=== PATIENT | female | born 1965 | race Caucasian/White ===

== ENCOUNTER 2021-09-12 23:27 | Observation (INO) | payer OTHER, SELFPAY ==
--- NOTE | ~2021-09-12 | CT_ITS ---
EXAMINATION: CT abdomen pelvis w con DATE: 09/13/2021 05:57 INDICATION: Decubitus ulcers. Assess for free air. TECHNIQUE: Computed tomography (CT) of the abdomen and pelvis was performed with 100 mL Omnipaque-350 intravenous contrast. Automated exposure control and iterative reconstruction technique were employe d. The dose-length product was 1434.20 mGy-cm. COMPARISON: None FINDINGS: Small left pleural effusion. Mild dependent atelectasis in the bilateral lower lobes. Heart size is n ormal. No pericardial effusion. Calcified paraesophageal lymph nodes and small splenic calcific locat ion consistent with old granulomatous disease. Cholecystectomy clips the gallbladder fossa. Liver, pa ncreas, bilateral adrenal glands and right kidney are normal. 8 x 7 x 19 mm obstructing stone in the proximal left ureter with severe left hydroureteronephrosis. There is marked thinning of the left saranya al parenchyma. Multiple additional 4 mm or smaller stones are seen in the dependent aspect of the barry yces in the lower pole of the left kidney. There appears to be extravasation of a small amount of flu id into the posterior perirenal fat along the upper pole of the kidney suggesting forniceal rupture w ith small urinoma. Fluid throughout the colon consistent with diarrhea. No bowel obstruction. Normal appendix. Small focus of gas in the otherwise normal partially decompressed bladder. 4 cm enhancing f ibroid at the uterine fundus. Bilateral adnexa are unremarkable. Trace amount of likely physiologic f ree fluid in the cul-de-sac. No abscess or free intraperitoneal gas. No pathologically enlarged abdom inal or pelvic lymphadenopathy. Small decubitus ulcer with few small foci of gas in the soft tissues overlying the coccyx. No definitive cortical erosion to suggest osteomyelitis. Multilevel imaging os teophytes/syndesmophytes throughout the visualized lower thoracic spine. Severe lumbar spondylosis. IMPRESSION: 1. Left nephrolithiasis with obstructing 19 x 8 x 7 mm proximal left ureteral stone with severe left hydroureteronephrosis which may be chronic given the significant renal cortical thinning. 2. Suggestion of forniceal rupture with small urinoma posterior to the upper pole of the left kidney. 3. Small left pleural effusion. 4. Decubitus ulcer overlying the posterior margin of the distal coccyx without abscess or definitive osteomyelitis. 5. Small amount of fluid in the bladder. Correlate for recent instrumentation or Schneider catheterizatio n. 6. 4 cm uterine fibroid. Reviewed, dictated and finalized at location A. ER FITTING IMPRESSION: 1. Left nephrolithiasis with obstructing 19 x 8 x 7 mm proximal left ureteral s tone with severe left hydroureteronephrosis which may be chronic given the sign ificant renal cortical thinning. 2. Suggestion of forniceal rupture with small urinoma posterior to the upper po le of the left kidney. 3. Small left pleural effusion. 4. Decubitus ulcer overlying the posterior margin of the distal coccyx without abscess or definitive osteomyelitis. 5. Small amount of fluid in the bladder. Correlate for recent instrumentation o r Schneider catheterization. 6. 4 cm uterine fibroid.
--- NOTE | 2021-09-12 23:30 | PC.NURSE ---
Patient refusing to get out of EMS stretcher. Michelle lift used to move patient from stretcher to wheelchair. Patient able to sit safely in wheelchair.
[2021-09-12 23:35] VITALS: BP 97/66; PULSE 79; RESP 16; TEMP 35.9; O2SAT 99
[2021-09-13] VITALS (18 sets, daily range): BP systolic 109–131; BP diastolic 46–74; PULSE 72–101; RESP 13–20; TEMP 36.1–36.2; O2SAT 92–99; BMI 41.4
--- NOTE | 2021-09-13 04:15 | PC.NURSE ---
Pt sitting in W/C in waiting room. awake/ alert no s/s of distress noted.
--- NOTE | 2021-09-13 04:33 | PC.NURSE ---
Patient transferred from w/c to stretcher via rosi lift. Patient refused to get up out of w/c, stated the pain is too much for her to stand. Patient states ever since her fall in july of last year she has not been able to take care of herself as she used too. Patient arrives a/ox3.
--- NOTE | 2021-09-13 04:39 | ECG_ITS ---
Measurements Intervals Lena Rate: 84 P: 7 ME: 143 QRS: -20 QRSD: 105 T: 58 QT: 400 QTc: 473 Interpretive Statements SINUS RHYTHM FREQUENT ATRIAL PREMATURE COMPLEXES EARLY PRECORDIAL R/S TRANSITION POSSIBLE LEFT VENTRICULAR HYPERTROPHY MINIMAL Q WAVES- HIGH LATERAL LEADS BASELINE ARTIFACT- I, II, III, AVR, AVL, AVF, V1-V6 ABNORMAL ECG Electronically Signed On 09-13-2021 7:08:42 EXCELLENCE SPECIALIST by Navdeep Magallon D.O.
--- NOTE | 2021-09-13 05:15 | ED.WEAKNESS ---
HPI - Weakness General Chief complaint: Weakness Stated complaint: DECREASED PO INTAKE Time Seen by Provider: 09/13/21 04:28 Source: patient History of Present Illness HPI Narrative: Patient presents with weakness. Reports she has had diarrhea over the past few days getting progressively worse so that she feels too weak to take care of herself tonight so she came to the ER for evaluation. Reports a history of MS and is at her baseline symptoms she denies any fevers, cough, congestion she denies any abdominal pain. Reports she has an ulcer on her bottom side that is more painful. Denies any urinary symptoms. Reports her primary concern is she is feeling dehydrated due to her diarrhea and slight decrease in p.o. intake Related Data Home Medications Medication Instructions Recorded Confirmed acyclovir 400 mg tablet 400 mg PO BID 01/12/21 albuterol sulfate 90 mcg/actuation 1 puff INHALATION Q4H PRN 01/12/21 aerosol inhaler albuterol sulfate 90 mcg/actuation 2 puff INHALATION Q4H PRN g 01/12/21 aerosol inhaler aspirin 81 mg chewable tablet 81 mg PO DAILY 01/12/21 hydrocodone 10 mg-acetaminophen 1 tablet PO Q6H PRN 01/12/21 325 mg tablet meloxicam 15 mg tablet 15 mg PO DAILY 01/12/21 polyethylene glycol 3350 17 gram 17 g PO DAILY 01/12/21 oral powder packet Allergies Allergy/AdvReac Type Severity Reaction Status Date / Time No Known Allergies Allergy Verified 09/13/21 06:00 Review of Systems Review of Systems: CONSTITUTIONAL: Denies fever, chills, or sweats. EYES: Denies visual changes, redness, or discharge. ENT: Denies rhinorrhea, congestion, sore throat, or otalgia. CARDIOVASCULAR: Denies chest pain, palpitations, or edema. RESPIRATORY: Denies cough or dyspnea. GASTROINTESTINAL: Denies abdominal pain, nausea, vomiting. GENITOURINARY: Denies dysuria or hematuria. SKIN: Denies rash or itching. MUSCULOSKELETAL: Denies back pain, joint pain, or myalgia. NEUROLOGIC: Denies headache, numbness, dizziness, or focal weakness. PSYCHIATRIC: Denies anxiety or depression. All systems reviewed & are unremarkable except as noted in HPI and below PMFSH Social History Social History Smoking packs per day: 1.5 Smoking cigarettes per day: 30.0 Years smoked: 30 Smoking pack-years: 45.00 Smoking status: Current every day smoker Tobacco type: cigarettes Alcohol intake: never Substance use: never Substance use type: does not use Exam Narrative: GENERAL: Well-appearing, well-nourished, and in no acute distress. HEAD: Normocephalic, atraumatic. EYES: PERRLA and EOMI. ENT: Nares clear, no rhinorrhea or epistaxis. Mucous membranes moist. NECK: Supple. No masses. No JVD CHEST: Clear to auscultation. No respiratory distress. No wheezes rales or rhonchi HEART: Regular rate and rhythm. No murmur heard. Normal peripheral pulses. ABDOMEN: Soft, nontender, nondistended, normal active bowel sounds. EXTREMITIES: Normal range of motion. Symmetric pitting edema noted bilateral lower extremities Back: Cubitus ulcer noted on the sacral area with surrounding erythema mild tenderness palpation no purulent drainage no focal fluctuance. SKIN: Warm, dry, no rash. NEURO: No focal deficits. Alert and oriented x3. PSYCH: Normal mood and affect. Course Reevaluation(s) Reevaluation #1: Patient is resting comfortably results reviewed with patient. Patient is comfortable with the inpatient plan. Date: 09/13/21 Time: 08:04 Vital Signs Vital signs: Vital Signs Temperature 35.9 C L 09/12/21 23:35 Pulse Rate 79 09/12/21 23:35 Respiratory Rate 16 09/12/21 23:35 Blood Pressure 97/66 L 09/12/21 23:35 Pulse Oximetry 99 09/12/21 23:35 Temperature 36.1 C L 09/13/21 04:15 Pulse Rate 84 09/13/21 06:31 Respiratory Rate 19 09/13/21 06:31 Blood Pressure 123/69 09/13/21 06:31 Pulse Oximetry 97 09/13/21 06:31 MDM - Weakness MDM Narrative
[2021-09-13] MEDS: SODIUM CHLORIDE 0.9% IV 1,000 ML 999 ML IV CONT (05:16)
[2021-09-13 05:23] LABS: Basophils Percent Auto 0.1 % (0.2-1.2); Hematocrit 38.2 % (37.0-47.0); Immature Granulocyte Absolute 0.11 K/mm3 (0.00-0.031); Immature Granulocyte Percent A 0.8 % (0-0.5); Lymphocytes Absolute Auto 0.72 K/mm3 (0.9-3.2); Lymphocytes Percent Auto 5.2 % (18.3-44.2); Mean Corpuscular Hemoglobin 29.6 pg (26-34); Mean Platelet Volume 9.5 fl (7.4-10.4); Monocytes Absolute Auto 0.5 K/mm3 (0.1-0.6); Monocytes Percent Auto 3.7 % (2.6-8.5); Neutrophils Absolute Auto 12.5 K/mm3 (1.3-6.7); Neutrophils Percent Auto 90.2 % (45.5-73.1); Platelet Count Result 157 k/mm3 (150-375); Red Blood Count 4.39 M/mm3 (4.2-5.4); Red Cell Distribution Width 14.9 % (11.5-14.5); White Blood Count 13.8 K/mm3 (4.5-10.0)
[2021-09-13 05:30] LABS: Add Urine Microscopic? YES; Appearance Urine Cloudy (Clear); Bilirubin Urine Negative (Negative); Blood Urine 2+ (Negative); Color Urine Amber (Yellow); Glucose Urine UA Negative (Negative); Ketones Urine Trace mg/dL (Negative); Leukocyte Esterase Ur 2+ LEU/UL (Negative); Mucus Urine Heavy /lpf; Nitrate Urine Negative (Negative); Protein Urine 2+ mg/dL (Negative); Specific Grav Ur 1.015 (1.001-1.035); WBC Clumps Urine Present /HPF; WBC Urine >75 /hpf
[2021-09-13 05:32] LABS: Lactic Acid Reflex 2.4 mmol/L (0.7-2.1)
[2021-09-13 05:34] LABS: Alanine Aminotransferase 27 U/L (4-35); Albumin Level 3.1 g/dL (3.5-5.1); Alkaline Phosphatase 204 U/L (38-126); Anion Gap 7 mmol/L (8-16); Aspartate Amino Transferase 49 U/L (14-36); Bilirubin,Total 0.8 mg/dL (0.2-1.3); Blood Urea Nitrogen 11 mg/dL (7-17); Calcium 8.2 mg/dL (8.4-10.2); Carbon Dioxide 25 mmol/L (22-30); Chloride 96 mmol/L (98-107); Estimated CRCL calculation 167 ml/min; Estimated Glomerular Filt Rate > 60; Glucose 157 mg/dL (65-110); Lipase 53 U/L (23-300); Potassium 3.3 mmol/L (3.4-5.0); Sodium 128 mmol/L (137-145)
[2021-09-13 08:15] LABS: Reflex Lactic Acid Yes or No Add Lactic
[2021-09-13 09:07] LABS: Lactic Acid 1.7 mmol/L (0.7-2.1)
[2021-09-13] MEDS: FUROSEMIDE INJ 40 MG/4 ML VIAL IV PUSH (10:23)
[2021-09-13] MEDS: SODIUM CHLORIDE 0.9% IV 1,000 ML 125 ML IV CONT (10:24)
--- NOTE | 2021-09-13 11:28 | WPDURCON ---
Assessment and Plan Assessment and plan (1) UTI (urinary tract infection): Qualifiers: Hematuria presence: without hematuria Urinary tract infection type: site unspecified Qualified Code(s): N39.0 - Urinary tract infection, site not specified Code(s): N39.0 - Urinary tract infection, site not specified Status: Acute Assessment and Plan: Send culture, treat with culture specific antibiotics (2) Hydronephrosis: Qualifiers: Hydronephrosis type: unspecified Qualified Code(s): N13.30 - Unspecified hydronephrosis Code(s): N13.30 - Unspecified hydronephrosis Status: Acute Assessment and Plan: She had a severely obstructed left kidney without evidence for pyelo secondary to a 2 cm ureteral stone which has probably been there for years or decades. - this was essentially an incidental finding - without evidence for pyelo on CT or high fevers/flank pain, would avoid stent at this time--- if her kidney isn't infected now, stenting a poorly draining kidney will likely infect it which will be nearly impossible to clear which will hasten or require nephrectomy - if she clinically deteriorates, then a left ureteral stent could be attempted (given longstanding stone, may not be able to navigate past) [facility] Consult Note HPI Date Seen: 09/13/21 Primary Care Provider: Renetta Germain, [employer] NETWORK ENGINEER- Consult Narrative Narrative: Alanna Membreno is a 56 year old female with MS, recently established with neuro. Brought to ED for decreased PO intake, dysuria, weakness. CT was performed as she was found to have a decub ulcer and ED was making sure no abscess. She says she saw a urologist when she was a teenager, doesn't know why, nothing recent. She had dysuria but no flank or abdominal pain, no fevers/chills/etc. Vitals normal WBC 13.8 [address] showed air in bladder (she was cath'd according to ED doc to get urine sample given her poor ambulation), empty bladder, hydronephrotic left kidney with almost no parenchyma, 2 cm mid ureteral stone, no stranding, air, evidence of pyelo Review of Systems Review of Systems: All systems reviewed & are unremarkable except as noted in HPI and below PMFSH Social History Social History Smoking packs per day: 1.5 Smoking cigarettes per day: 30.0 Years smoked: 30 Smoking pack-years: 45.00 Smoking status: Current every day smoker Tobacco type: cigarettes Alcohol intake: never Substance use: never Substance use type: does not use Meds Home Medications and Allergies Home Medications Medication Instructions Recorded Confirmed Type acyclovir 400 mg tablet 400 mg PO BID 01/12/21 History albuterol sulfate 90 mcg/actuation 1 puff INHALATION Q4H PRN 01/12/21 History aerosol inhaler albuterol sulfate 90 mcg/actuation 2 puff INHALATION Q4H PRN g 01/12/21 History aerosol inhaler aspirin 81 mg chewable tablet 81 mg PO DAILY 01/12/21 History hydrocodone 10 mg-acetaminophen 1 tablet PO Q6H PRN 01/12/21 History 325 mg tablet meloxicam 15 mg tablet 15 mg PO DAILY 01/12/21 History polyethylene glycol 3350 17 gram 17 g PO DAILY 01/12/21 History oral powder packet baclofen 10 mg tablet See Rx Instructions .ROUTE 08/06/21 Rx .COMPLEX #90 tablet gabapentin 600 mg tablet See Rx Instructions .ROUTE 08/06/21 Rx .COMPLEX #150 tablet modafinil 200 mg tablet 200 mg PO DAILY #30 tablet 09/07/21 Rx Allergies Allergy/AdvReac Type Severity Reaction Status Date / Time No Known Allergies Allergy Verified 09/13/21 06:00 Vital Signs Vital Signs - 24 hr 09/12/21 23:35 09/13/21 04:15 09/13/21 04:34 Temperature 35.9 C L 36.1 C L Pulse Rate 79 90 90 Respiratory Rate 16 18 15 Blood Pressure 97/66 L 114/68 Pulse Oximetry 99 98 99 09/13/21 04:46 09/13/21 05:10 09/13/21 05:16 Temperature Pulse
--- NOTE | 2021-09-13 11:41 | WPDNEURCNPN ---
Assessment and Plan Additional Plan 1. Multiple sclerosis for which patient is not receiving any anti MS medication 2. Renal stone 3. Generalized symptomatology plan is to let the general problem be taken care, involving the physical therapy before any treatment is considered Consult date: 09/13/21 HPI: Alanna Membreno is a 56 year old female 56 years old lady admitted to [facility] through the emergency room for the complaints of diarrhea of several days duration in addition to the ongoing history of multiple sclerosis and presenting complaints of fever cough congestion an ulcer on the bottom but not taking any anti demyelinating disease medications. Initial evaluation in the emergency room documented his small bilateral pleural effusion, severe hydronephrosis of the left kidney with severe thinning of the car tax, along with large long-standing obstructing calculus in the mid ureter measuring 2.1x1cm, decompensated urinary bladder with mild wall thickening, fibroid uterus with fundal fibroid measuring 3.6cm, diverticulosis without acute diverticulitis and without any free intraperitoneal air, liquid stool in the left colon consistent with mild diarrhea disease, on home medications including acyclovir 400 mg twice a day, neurology consult has already been obtained. Review of Systems Review of Systems: All systems reviewed & are unremarkable except as noted in HPI and below PMFSH Social History Social History Smoking packs per day: 1.5 Smoking cigarettes per day: 30.0 Years smoked: 30 Smoking pack-years: 45.00 Smoking status: Current every day smoker Tobacco type: cigarettes Alcohol intake: never Substance use: never Substance use type: does not use Meds Home Medications and Allergies Home Medications Medication Instructions Recorded Confirmed Type acyclovir 400 mg tablet 400 mg PO BID 01/12/21 History albuterol sulfate 90 mcg/actuation 1 puff INHALATION Q4H PRN 01/12/21 History aerosol inhaler albuterol sulfate 90 mcg/actuation 2 puff INHALATION Q4H PRN g 01/12/21 History aerosol inhaler aspirin 81 mg chewable tablet 81 mg PO DAILY 01/12/21 History hydrocodone 10 mg-acetaminophen 1 tablet PO Q6H PRN 01/12/21 History 325 mg tablet meloxicam 15 mg tablet 15 mg PO DAILY 01/12/21 History polyethylene glycol 3350 17 gram 17 g PO DAILY 01/12/21 History oral powder packet baclofen 10 mg tablet See Rx Instructions .ROUTE 10/28/21 Rx .COMPLEX #90 tablet gabapentin 600 mg tablet See Rx Instructions .ROUTE 08/06/21 Rx .COMPLEX #150 tablet modafinil 200 mg tablet 200 mg PO DAILY #30 tablet 09/07/21 Rx Allergies Allergy/AdvReac Type Severity Reaction Status Date / Time No Known Allergies Allergy Verified 09/13/21 06:00 Vital Signs Vital Signs - 24 hr 09/12/21 23:35 09/13/21 04:15 09/13/21 04:34 Temperature 35.9 C L 36.1 C L Pulse Rate 79 90 90 Respiratory Rate 16 18 15 Blood Pressure 97/66 L 114/68 Pulse Oximetry 99 98 99 09/13/21 04:46 09/13/21 05:10 09/13/21 05:16 Temperature Pulse Rate 79 79 Respiratory Rate 17 16 Blood Pressure Pulse Oximetry 99 98 09/13/21 05:30 09/13/21 05:32 09/13/21 05:56 Temperature Pulse Rate 101 H Respiratory Rate 15 13 Blood Pressure Pulse Oximetry 97 97 09/13/21 05:58 09/13/21 06:01 09/13/21 06:20 Temperature Pulse Rate 85 86 84 Respiratory Rate 15 16 20 Blood Pressure 131/74 Pulse Oximetry 98 97 98 09/13/21 06:30 09/13/21 06:31 09/13/21 08:47 Temperature Pulse Rate 82 84 77 Respiratory Rate 18 19 18 Blood Pressure 123/69 126/66 Pulse Oximetry 97 97 95 09/13/21 10:49 Temperature Pulse Rate 80 Respiratory Rate 17 Blood Pressure 113/61 Pulse Oximetry 97 Exam Const: General: cooperative, comfortable, no acute distress, alert and awake Nutritional Appearance: obese Orientation/consciousness: oriented to per
--- NOTE | 2021-09-13 13:06 | PC.NURSE ---
This patient, Alanna Membreno, was admitted to [facility] Surg Room 326-01 at 1200. Patient/family oriented to hospital policies and general routines including ID bracelet, bed and alarms, visiting hours, pain management, procedures, bathroom and other care routines, personal items, smoking policy, room service/diet, and visiting hours. Information on how to activate the Rapid Response Team has been discussed. Patient/Family are encouraged to report perceived risks to care and to ask questions if they do not understand what they are told or what they should do.
--- NOTE | 2021-09-13 14:20 | PM.IMHP ---
H&P: HPI History of Present Illness Date/Time: 09/13/21 14:20 this is a 54-year-old female patient who resides with her mother. She has a history of MS. The patient stated that she has had a poor appetite for the last week. She also stated that she has not been taking her medication for at least a month. She states that she is pretty much wheelchair-bound. The patient stated that she does have home health at least 3 times a week. She has been having diarrhea in the last time she had diarrhea was this morning. The patient stated that she has been incontinent of liquid stool as well as urine. She stated that her buttocks has been broke down and has been getting worse. She stated that the nurses have tried to put a foam dressing on her buttocks but it got ripped off and me the maceration worse. The patient stated that she has urinary frequency and urgency. She is incontinent of urine but feels as though her bladder is still full. White count 13.8. Sodium 128 potassium 3.3. Patient was positive for UTI. Abdominal pelvis CT was read as 1. Left nephrolithiasis with obstructing 19 x 8 x 7 mm proximal left ureteral stone with severe left hydroureteronephrosis which may be chronic given the significant renal cortical thinning. 2. Suggestion of forniceal rupture with small urinoma posterior to the upper pole of the left kidney. 3. Small left pleural effusion. 4. Decubitus ulcer overlying the posterior margin of the distal coccyx without abscess or definitive osteomyelitis. 5. Small amount of fluid in the bladder. Correlate for recent instrumentation or Schneider catheterization. 6. 4 cm uterine fibroid. Patient was started on IV fluids ceftriaxone Lasix and Zosyn in the emergency room. Urology and Neurology have been consulted. The patient is being admitted to observation status on 09/13/2021. Chief Complaint: Diarrhea and weakness Review of Systems Review of Systems: All systems reviewed & are unremarkable except as noted in HPI and below Constitutional: Constitutional: Reports as per HPI and Reports no additional constitutional complaints Eyes: Eyes: Reports as per HPI and Reports no additional eye complaints ENT: Reports system reviewed and no additional complaints, except as documented and Reports Normal hearing present Cardiovascular: Cardiovascular: Reports no additional cardiovascular complaints Respiratory: Respiratory: Reports no additional respiratory complaints and Reports no additional respiratory complaints Gastrointestinal: Gastrointestinal: Reports as per HPI and Reports no additional gastrointestinal complaints Musculoskeletal: Musculoskeletal: Reports no additional musculoskeletal complaints Integumentary/Breasts: Skin/Breast: Reports system reviewed and no additional complaints, except as docu and Reports as per HPI Neurologic: Reports system reviewed and no additional complaints, except as documented, Reports as per HPI and Reports Normal hearing present Psychiatric: Psychiatric: Reports no additional psychiatric complaints and Reports as per HPI Endocrine: Endocrine: Reports no additional endocrine complaints Hematologic/Lymphatic: Hematologic/Lymphatic: Reports no additional hematologic/lymphatic complaints Allergic/Immunologic: Allergic/Immunologic: Reports no additional allergic/immunologic complaints PMFSH Past Medical History Medical History (Updated 09/13/21 @ 14:46 by Gwendolyn Steven NP) Asthma History of nephrolithiasis Multiple sclerosis Shingles Surgical History Surgical History (Updated 09/13/21 @ 14:46 by Gwendolyn Steven NP) History of surgery on upper extremity Hx of cholecystectomy Family History Family History (Updated 09/13/21 @ 14:47 by Gwendolyn Steven NP) Father Diabetes mellitus Social History Social History (Updated 09/13/21 @ 14:57 by Gwendolyn Steven NP) Social History: The patient tells me that she quit smoking 3 months ago. She lives with her mother and she is disabled.
[2021-09-13 15:19] LABS: Anion Gap 7 mmol/L (8-16); Blood Urea Nitrogen 8 mg/dL (7-17); Calcium 7.7 mg/dL (8.4-10.2); Carbon Dioxide 26 mmol/L (22-30); Chloride 97 mmol/L (98-107); Estimated CRCL calculation 137 ml/min; Estimated Glomerular Filt Rate > 60; Glucose 150 mg/dL (65-110); Potassium 2.9 mmol/L (3.4-5.0); Sodium 130 mmol/L (137-145)
[2021-09-13] MEDS: ACYCLOVIR 400 MG TABLET PO (16:57)
[2021-09-13] MEDS: POTASSIUM CHLORIDE 20 MEQ PACKET (FOR LIQUID) 40 MEQ PO (19:33)
[2021-09-13 23:39] LABS: Anion Gap 5 mmol/L (8-16); Blood Urea Nitrogen 9 mg/dL (7-17); Calcium 7.7 mg/dL (8.4-10.2); Carbon Dioxide 23 mmol/L (22-30); Chloride 98 mmol/L (98-107); Estimated CRCL calculation 167 ml/min; Estimated Glomerular Filt Rate > 60; Glucose 136 mg/dL (65-110); Magnesium 2.1 mg/dL (1.6-2.3); Potassium 3.4 mmol/L (3.4-5.0); Sodium 126 mmol/L (137-145)
--- NOTE | 2021-09-14 01:01 | PC.NURSE ---
clarified home medications with patient, she was frustrated in general and said I haven't taken them in a long time and I don't feel up to taking them now Offered her the one ordered for tonight and she said she will not take it .. She overall has had very little motivation and her only concern tonight has been her room temperature.
[2021-09-14] MEDS: SODIUM CHLORIDE 0.9% IV 1,000 ML 125 ML IV CONT (05:53)
[2021-09-14 06:00] VITALS: BP 104/54; PULSE 67; RESP 18; TEMP 35.7; O2SAT 94
[2021-09-14 07:12] LABS: Basophils Percent Auto 0.2 % (0.2-1.2); Eosinophils Percent Auto 0.1 % (0-4.4); Hematocrit 33.3 % (37.0-47.0); Hemoglobin 11.4 g/dL (12.0-15.0); Immature Granulocyte Absolute 0.06 K/mm3 (0.00-0.031); Immature Granulocyte Percent A 0.7 % (0-0.5); Lymphocytes Percent Auto 9.4 % (18.3-44.2); Mean Corpuscular HGB Conc 34.2 g/dl (32-36); Mean Corpuscular Hemoglobin 29.7 pg (26-34); Mean Corpuscular Volume 86.7 fl (80-100); Mean Platelet Volume 9.4 fl (7.4-10.4); Monocytes Absolute Auto 0.5 K/mm3 (0.1-0.6); Monocytes Percent Auto 6.2 % (2.6-8.5); Neutrophils Absolute Auto 7.1 K/mm3 (1.3-6.7); Neutrophils Percent Auto 83.4 % (45.5-73.1); Platelet Count Result 140 k/mm3 (150-375); Red Blood Count 3.84 M/mm3 (4.2-5.4); Red Cell Distribution Width 14.9 % (11.5-14.5); White Blood Count 8.5 K/mm3 (4.5-10.0)
[2021-09-14 07:22] LABS: Alanine Aminotransferase 18 U/L (4-35); Albumin Level 2.5 g/dL (3.5-5.1); Alkaline Phosphatase 156 U/L (38-126); Anion Gap 6 mmol/L (8-16); Aspartate Amino Transferase 29 U/L (14-36); Bilirubin,Total 0.9 mg/dL (0.2-1.3); Blood Urea Nitrogen 6 mg/dL (7-17); Calcium 7.6 mg/dL (8.4-10.2); Carbon Dioxide 24 mmol/L (22-30); Chloride 102 mmol/L (98-107); Estimated CRCL calculation 167 ml/min; Estimated Glomerular Filt Rate > 60; Glucose 135 mg/dL (65-110); Lactic Acid Reflex 1.5 mmol/L (0.7-2.1); Lipase 66 U/L (23-300); Sodium 132 mmol/L (137-145)
[2021-09-14 11:40] VITALS: BMI 41.4
[2021-09-14 12:03] LABS: Total Triiodothyronine (T3) 0.74 NG/ML (0.97-1.69)
--- NOTE | 2021-09-14 12:49 | PM.IMPN ---
Progress Note: A&P Assessment and Plan (1) UTI (urinary tract infection): Qualifiers: Hematuria presence: without hematuria Urinary tract infection type: site unspecified Qualified Code(s): N39.0 - Urinary tract infection, site not specified Code(s): N39.0 - Urinary tract infection, site not specified Status: Acute Assessment and Plan: -Urine and blood cultures are pending. -Continue with Zosyn. (2) Multiple sclerosis: Code(s): G35 - Multiple sclerosis Status: Chronic Assessment and Plan: -Neurology has been consulted. -The patient stated she has not been taking any of her medication for at least a month (3) Diarrhea: Code(s): R19.7 - Diarrhea, unspecified Status: Acute Assessment and Plan: -Will get stool specimens. -The patient stated that she has been having diarrhea for least a week w/ liquid stool incontinence. -Monitor her electrolytes closely. (4) Shingles: Code(s): B02.9 - Zoster without complications Status: Chronic Assessment and Plan: -Continue with acyclovir. (5) Asthma: Code(s): J45.909 - Unspecified asthma, uncomplicated Status: Chronic Assessment and Plan: -Continue with her home inhalers (6) Weakness: Code(s): R53.1 - Weakness Status: Acute Assessment and Plan: -Patient has MS and she has home health coming out 3 days a week but stated she may require more care than this. -She does live with her mother. (7) Hydronephrosis: Qualifiers: Hydronephrosis type: unspecified Qualified Code(s): N13.30 - Unspecified hydronephrosis Code(s): N13.30 - Unspecified hydronephrosis Status: Acute Assessment and Plan: -Urology has been consulted and nuclear med Lasix renal scan has been ordered as well. -Please see urology notes. -She has had a severely obstructive left kidney without evidence of pyelo secondary to his 2 cm ureteral stone which has probably been there for years or decades. -Pt has refused renal scan until speaking with urology again (8) Leukocytosis (leucocytosis): Qualifiers: Leukocytosis type: unspecified Qualified Code(s): D72.829 - Elevated white blood cell count, unspecified Code(s): D72.829 - Elevated white blood cell count, unspecified Status: Acute Assessment and Plan: -The patient is being treated for urinary tract infection. -Blood and urine cultures as well as stool cultures are ordered and pending (9) Hyponatremia: Code(s): E87.1 - Hypo-osmolality and hyponatremia Status: Acute Assessment and Plan: -Decreased PO intake and volume loss secondary to diarrhea -Cautious IVF w/ NS (10) Hypokalemia: Code(s): E87.6 - Hypokalemia Status: Acute Assessment and Plan: -Likely due to increase PO intake and volume loss secondary to diarrhea -Refusing all PO meds, will change IVF to KCL/NS @100/hr -Continue to monitor and replace as necessary Additional Plan Currently refusing all meds that aren't IV. At least she is getting treated for UTI w/ zosyn and I changed her IVF to have KCL/NS for her hyponatremia and hypokalemia. Has home health 3x week, does not seem to be enough, may need to consider SNF?? Also refusing renal scan wants to see urologist again prior to getting it done. Subjective Date/time seen: 09/14/21 12:49 Interval history: 56 yo female w/ hx of MS admitted for UTI and hydronephrosis. Generalized weakness and debility. Today pt c/o back pain, fatigue, dysuria, diarrhea. Refusing meds with no specific reason why. Has baclofen and gabapentin ordered for her back pain but does not want to take it. Review of Systems Review of Systems: General: Denies fevers, + fatigue Eyes: Denies vision changes or eye pain ENT: Denies nasal congestion or sore throat Respiratory: Den
--- NOTE | 2021-09-14 13:05 | WPDUROPN2 ---
Progress Note: A&P Additional Plan Patient has a 2 cm ureteral stone. There is hydronephrosis proximal to the stone. There was essentially no renal parenchyma left. She is not currently having flank pain. She is not currently having dysuria. Urine culture is pending. Would follow up on her urine culture and treat with appropriate antibiotics if positive. No intervention needed on the ureteral stone as the kidney upstream has essentially 0 function. Would only intervene if she has upper tract infection Subjective Subjective Date/Time Seen: 09/14/21 13:05 Patient is the covers up over her face. She does respond to questions. But she does not reveal her face. She denies any dysuria. She denies any flank pain Exam Narrative: Appears to be resting comfortably Objective Data Vital Signs Vital Signs: Vital Signs - 24 hr 09/13/21 14:03 09/13/21 22:00 09/14/21 06:00 Temperature 96.9 F L 97.2 F L 96.3 F L Pulse Rate 72 84 67 Respiratory Rate 20 18 18 Blood Pressure 114/55 L 109/46 L 104/54 L Pulse Oximetry 92 94 94 Intake/Output Intake/Output: Intake & Output 09/11/21 09/12/21 09/13/21 09/14/21 23:59 23:59 23:59 23:59 Intake Total 2540 100 Balance 2540 100 Meds/Results Medications: Active Medications Generic Name Dose Route Start Last Admin Trade Name Freq PRN Reason Stop Dose Admin Acetaminophen 650 mg 09/13/21 15:57 Acetaminophen 325 Mg Tablet PO Q6H PRN Fever Hydrocodone Bitart/Acetaminophen 1 tab 09/13/21 15:57 Hydrocodone/Acetaminophen (*Crx) 10-325 Mg Tablet PO Q6H PRN Pain Acyclovir 400 mg 09/13/21 17:00 09/14/21 11:23 Acyclovir 400 Mg Tablet PO Not Given BID ANGELA Albuterol 1 - 2 puff 09/13/21 15:57 Albuterol Sulfate (*Sp) Aerosol 1 Puff INHALATION Q4H PRN Shortness Of Breath Aspirin 81 mg 09/14/21 09:00 09/14/21 11:24 Aspirin 81 Mg Chewable Tablet PO Not Given DAILY ANGELA Baclofen 10 mg 09/13/21 23:15 09/14/21 12:19 Baclofen 10 Mg Tablet PO Not Given TID ANGELA Gabapentin 600 mg 09/14/21 09:00 09/14/21 12:19 Gabapentin 300 Mg Capsule PO Not Given 5 TIMES DAILY [facility] Piperacillin/Tazobactam/Dextrose 3.375 gm in 50 mls @ 100 mls/hr 09/13/21 18:00 09/14/21 12:13 Zosyn 3.375 Gm/D5w 50ml Pm IVPB 100 mls/hr Q6H ANGELA Administration Potassium Chloride/Sodium Chloride 1,000 mls @ 100 mls/hr 09/14/21 13:00 Kcl 20 Meq/Ns IV CONT .Q10H [facility] Meloxicam 15 mg 09/14/21 09:00 09/14/21 11:24 Meloxicam 7.5 Mg Tablet PO Not Given DAILY [facility] Miconazole Nitrate 1 applic 09/14/21 09:00 09/14/21 12:13 Miconazole 2% Antifungal Ointment 56 Gm TOPICAL 1 applic Q12HR ANGELA Administration Modafinil 200 mg 09/14/21 09:00 09/14/21 11:24 Modafinil (*Crx) 200 Mg Tablet PO Not Given DAILY [facility] Polyethylene Glycol 17 gm 09/14/21 09:00 09/14/21 11:24 Polyethylene Glycol 3350 17 Gm Powd.Pack PO Not Given DAILY [facility] Potassium Chloride 40 meq 09/14/21 09:00 09/14/21 11:24 Potassium Chloride 20 Meq Packet (For Liquid) PO Not Given DAILY [facility] Radiology Results: ITS Impressions Abdomen/Pelvis CT 09/13/21 08:04 IMPRESSION: 1. Left nephrolithiasis with obstructing 19 x 8 x 7 mm proximal left ureteral stone with severe left hydroureteronephrosis which may be chronic given the significant renal cortical thinning. 2. Suggestion of forniceal rupture with small urinoma posterior to the upper pole of the left kidney. 3. Small left pleural effusion. 4. Decubitus ulcer overlying the posterior margin of the distal coccyx without abscess or definitive osteomyelitis. 5. Small amount of fluid in the bladder. Correlate for recent instrumentation or Schneider catheterization. 6. 4 cm uterine fibroid. Labs Labs: Laboratory Results - last 24 hr 09/13/21 09/13/21 09/14/21 15:00 23:11 06:06 WBC 8.5 RBC 3.84 L Hgb 11.4 L Hct 33.3 L MCV 86.7 MCH 29.7
[2021-09-14 14:00] VITALS: BP 111/45; PULSE 76; RESP 16; TEMP 36.6; O2SAT 91
--- NOTE | 2021-09-14 14:02 | PCNSR ---
On 09/14/21, the student, Janiya Pineda, provided care and completed [facility] documentation on this patient. I have reviewed the student's documentation and agree with the findings.
[2021-09-14] MEDS: KCL 20MEQ/0.9% SOD CHL 1,000 ML 100 ML IV CONT ×2 (14:04→23:25)
--- NOTE | 2021-09-14 15:54 | PCOTNOTE ---
Began evaluation, gathered PLOF information, pt. then refused to continue, requesting to try another time. Will follow up when pt. willing to participate
[2021-09-14 21:23] VITALS: BP 125/61; PULSE 75; RESP 16; TEMP 36.5; O2SAT 95
[2021-09-15 06:00] VITALS: BP 121/62; PULSE 74; RESP 18; TEMP 36.3; O2SAT 95
[2021-09-15 07:07] LABS: Basophils Percent Auto 0.2 % (0.2-1.2); Hematocrit 32.9 % (37.0-47.0); Hemoglobin 10.9 g/dL (12.0-15.0); Immature Granulocyte Absolute 0.06 K/mm3 (0.00-0.031); Immature Granulocyte Percent A 0.6 % (0-0.5); Lymphocytes Percent Auto 8.6 % (18.3-44.2); Mean Corpuscular HGB Conc 33.1 g/dl (32-36); Mean Corpuscular Volume 87.5 fl (80-100); Mean Platelet Volume 9.8 fl (7.4-10.4); Monocytes Absolute Auto 0.5 K/mm3 (0.1-0.6); Monocytes Percent Auto 5.6 % (2.6-8.5); Neutrophils Absolute Auto 7.9 K/mm3 (1.3-6.7); Platelet Count Result 162 k/mm3 (150-375); Red Blood Count 3.76 M/mm3 (4.2-5.4); Red Cell Distribution Width 15.6 % (11.5-14.5); White Blood Count 9.3 K/mm3 (4.5-10.0)
[2021-09-15 07:35] LABS: Alanine Aminotransferase 16 U/L (4-35); Albumin Level 2.5 g/dL (3.5-5.1); Alkaline Phosphatase 120 U/L (38-126); Anion Gap 4 mmol/L (8-16); Aspartate Amino Transferase 26 U/L (14-36); Bilirubin,Total 0.8 mg/dL (0.2-1.3); Blood Urea Nitrogen 6 mg/dL (7-17); Calcium 7.7 mg/dL (8.4-10.2); Carbon Dioxide 25 mmol/L (22-30); Chloride 105 mmol/L (98-107); Estimated CRCL calculation 137 ml/min; Estimated Glomerular Filt Rate > 60; Glucose 106 mg/dL (65-110); Potassium 3.5 mmol/L (3.4-5.0); Sodium 134 mmol/L (137-145)
[2021-09-15] MEDS: KCL 20MEQ/0.9% SOD CHL 1,000 ML 100 ML IV CONT (09:27)
[2021-09-15] MEDS: BACLOFEN 10 MG TABLET PO ×3 (09:29→17:59)
[2021-09-15] MEDS: GABAPENTIN 300 MG CAPSULE 600 MG PO ×4 (09:29→20:13)
[2021-09-15] MEDS: ASPIRIN 81 MG CHEWABLE TABLET PO (09:30)
[2021-09-15] MEDS: ACYCLOVIR 400 MG TABLET PO ×2 (09:30→17:59)
[2021-09-15] MEDS: MELOXICAM 7.5 MG TABLET 15 MG PO (09:30)
[2021-09-15] MEDS: polyethylene glycoL 3350 17 GM POWD.PACK PO (09:31)
[2021-09-15] MEDS: POTASSIUM CHLORIDE 20 MEQ PACKET (FOR LIQUID) 40 MEQ PO (09:31)
[2021-09-15] MEDS: modafiniL (*CRX) 200 MG TABLET PO (09:36)
--- NOTE | 2021-09-15 10:50 | PCOTNOTE ---
Attempted to evaluate for occupational therapy. Pt. has been refusing all services. Spoke with pt. and mother, pt. now agreeable to take pain medication and participate in evaluation once medication is in effect. Will follow up later.
[2021-09-15] MEDS: HYDROcodone/acetaminophen (*CRX) 10-325 MG TABLET 1 TAB PO ×2 (11:11→17:59)
--- NOTE | 2021-09-15 12:07 | WPDNEUROPN ---
Progress Note: A&P Additional Plan as the patient is not receiving any neurological treatment at this particular time she can be strict discharge as per the family physician and neurologist and will follow her in the office for the ongoing treatment regarding multiple sclerosis Subjective Date/time seen: 09/15/21 12:07 reviewed, with hematuria and underlying multiple sclerosis and documented 2cm ureteral stone with hydronephrosis proximal to the stone with no renal parenchyma left as per the urologist he will follow her urine according to the antibiotics sensitivity for the ongoing infection and dysuria patient is not receiving any treatment for the demyelinating disease and has also sore on her back will prefer to get the treatment at home Review of Systems Review of Systems: All systems reviewed & are unremarkable except as noted in HPI and below Exam Narrative: awake alert cooperative in distress, Her speech is not dysphasic not dysarthric not dysphonic, but she is complaining of pain in her back head normocephalic, ear nose throat examination normal, heart regular, lungs clear with no rhonchi or crepitations, abdomen is soft with no organomegaly, neurological examination revealed her to be awake alert cooperative his speech nor dysphasic no dysarthric not dysphonic the cranial examination is normal motor examination revealed her to have generalized decrease in the strength but no focal motor deficit and reflexes symmetrical plantars are downgoing there is no evidence of gross sensory or cerebellar deficit Objective Data Vital Signs Vital Signs: Vital Signs - 24 hr 09/14/21 14:00 09/14/21 21:23 09/15/21 06:00 Temperature 36.6 C 36.5 C 36.3 C L Pulse Rate 76 75 74 Respiratory Rate 16 16 18 Blood Pressure 111/45 L 125/61 121/62 Pulse Oximetry 91 95 95 Intake/Output Intake/Output: Intake & Output 09/12/21 09/13/21 09/14/21 09/15/21 23:59 23:59 23:59 23:59 Intake Total 2540 2100 1100 Balance 2540 2100 1100 Meds/Results Medications: Active Medications Generic Name Dose Route Start Last Admin Trade Name Freq PRN Reason Stop Dose Admin Acetaminophen 650 mg 09/13/21 15:57 Acetaminophen 325 Mg Tablet PO Q6H PRN Fever Hydrocodone Bitart/Acetaminophen 1 tab 09/13/21 15:57 09/15/21 11:11 Hydrocodone/Acetaminophen (*Crx) 10-325 Mg Tablet PO 1 tab Q6H PRN Administration Pain Acyclovir 400 mg 09/13/21 17:00 09/15/21 09:30 Acyclovir 400 Mg Tablet PO 400 mg BID ANGELA Administration Albuterol 1 - 2 puff 09/13/21 15:57 Albuterol Sulfate (*Sp) Aerosol 1 Puff INHALATION Q4H PRN Shortness Of Breath Aspirin 81 mg 09/14/21 09:00 09/15/21 09:30 Aspirin 81 Mg Chewable Tablet PO 81 mg DAILY ANGELA Administration Baclofen 10 mg 09/13/21 23:15 09/15/21 09:29 Baclofen 10 Mg Tablet PO 10 mg TID ANGELA Administration Gabapentin 600 mg 09/14/21 09:00 12 09:29 Gabapentin 300 Mg Capsule PO 600 mg 5 TIMES DAILY ANGELA Administration Piperacillin/Tazobactam/Dextrose 3.375 gm in 50 mls @ 100 mls/hr 09/13/21 18:00 09/15/21 05:40 Zosyn 3.375 Gm/D5w 50ml Pm IVPB Infused Q6H ANGELA Infusion Potassium Chloride/Sodium Chloride 1,000 mls @ 100 mls/hr 09/14/21 14:00 09/15/21 09:27 Kcl 20 Meq/Ns IV CONT 100 mls/hr .Q10H ANGELA Administration Meloxicam 15 mg 09/14/21 09:00 09/15/21 09:30 Meloxicam 7.5 Mg Tablet PO 15 mg DAILY ANGELA Administration Miconazole Nitrate 1 applic 09/14/21 09:00 09/15/21 09:30 Miconazole 2% Antifungal Ointment 56 Gm TOPICAL 1 applic Q12HR ANGELA Administration Modafinil 200 mg 09/14/21 09:00 09/15/21 09:36 Modafinil (*Crx) 200 Mg Tablet PO 200 mg DAILY ANGELA Administration Polyethylene Glycol 17 gm 09/14/21 09:00 09/15/21 09:31 Polyethylene Glycol 3350 17 Gm Powd.Pack PO 17 gm DAILY ANGELA Administration Potassium Chloride 40 meq 09/14/21 09:00 12 09:31 Potassium Chlor
[2021-09-15 14:00] VITALS: BP 107/60; PULSE 73; RESP 20; TEMP 37.2; O2SAT 95
--- NOTE | 2021-09-15 14:01 | PM.IMPN ---
Progress Note: A&P Assessment and Plan (1) UTI (urinary tract infection): Qualifiers: Hematuria presence: without hematuria Urinary tract infection type: site unspecified Qualified Code(s): N39.0 - Urinary tract infection, site not specified Code(s): N39.0 - Urinary tract infection, site not specified Status: Acute Assessment and Plan: UC shows likely contamination BC NGTD Continue with Zosyn (2) Multiple sclerosis: Code(s): G35 - Multiple sclerosis Status: Chronic Assessment and Plan: Neurology following, recommendations appreciated No treatment at this time Will follow up outpatient (3) Diarrhea: Code(s): R19.7 - Diarrhea, unspecified Status: Acute Assessment and Plan: Stool specimens still pending Reported diarrhea for least a week w/ liquid stool incontinence Monitor her electrolytes closely (4) Shingles: Code(s): B02.9 - Zoster without complications Status: Chronic Assessment and Plan: Continue with acyclovir (5) Asthma: Code(s): J45.909 - Unspecified asthma, uncomplicated Status: Chronic Assessment and Plan: Continue home inhalers (6) Weakness: Code(s): R53.1 - Weakness Status: Acute Assessment and Plan: Patient has MS Visiting nursing following 3 days, may need HHC at d/c Mother is primary home health care physician (7) Hydronephrosis: Qualifiers: Hydronephrosis type: unspecified Qualified Code(s): N13.30 - Unspecified hydronephrosis Code(s): N13.30 - Unspecified hydronephrosis Status: Acute Assessment and Plan: CT of A/P-->Left nephrolithiasis with obstructing 19 x 8 x 7 mm proximal left ureteral stone with severe left hydroureteronephrosis which may be chronic given the significant renal cortical thinning. Urology consulted, recommendations appreciated Renal scan cancelled, pt has refused renal scan until speaking with urology again Continue IV antibiotics for now (8) Leukocytosis (leucocytosis): Qualifiers: Leukocytosis type: unspecified Qualified Code(s): D72.829 - Elevated white blood cell count, unspecified Code(s): D72.829 - Elevated white blood cell count, unspecified Status: Acute Assessment and Plan: Resolved WBC wnl Follow BC UC likely contaminated Follow stool cultures (9) Hyponatremia: Code(s): E87.1 - Hypo-osmolality and hyponatremia Status: Acute Assessment and Plan: Improving Likely due to decreased PO intake and volume loss secondary to diarrhea Continue with IVF Monitor (10) Hypokalemia: Code(s): E87.6 - Hypokalemia Status: Acute Assessment and Plan: Resolved Likely due to increase PO intake and volume loss secondary to diarrhea Was refusing all PO meds Decrease KCL/NS to 50/hr Continue to monitor and replace as necessary Additional Plan 09/14 Currently refusing all meds that aren't IV. At least she is getting treated for UTI w/ zosyn and I changed her IVF to have KCL/NS for her hyponatremia and hypokalemia. Has home health 3x week, does not seem to be enough, may need to consider SNF?? Also refusing renal scan wants to see urologist again prior to getting it done. Code status: DNR Disposition: Home with [facility] when medically stable Subjective Date/time seen: 09/15/21 14:01 Interval history: 56 yo female w/ hx of MS admitted for UTI and hydronephrosis. Generalized weakness and debility. Today pt c/o back pain, fatigue, dysuria, diarrhea. Refusing meds with no specific reason why. Has baclofen and gabapentin ordered for her back pain but does not want to take it. Review of Systems Review of Systems: All systems reviewed & are unremarkable except as noted in HPI and below Exam Const: General: no acute distress, alert and awake Orientation/consciousness: patient oriented x3 HENMT: Head: normocephalic and atraumatic Ears: hearing barbra
--- NOTE | 2021-09-15 14:51 | PCOTNOTE ---
Attempted to complete OT evaluation, pt. refused. Mother present. Nurse updated. Will attempt one more time tomorrow.
[2021-09-15 22:00] VITALS: BP 92/32; PULSE 77; RESP 18; TEMP 36.8; O2SAT 92
[2021-09-16] MEDS: KCL 20MEQ/0.9% SOD CHL 1,000 ML 50 ML IV CONT (00:24)
[2021-09-16 00:32] VITALS: O2SAT 94
[2021-09-16 06:00] VITALS: BP 90/53; PULSE 75; RESP 18; TEMP 36; O2SAT 99
--- NOTE | 2021-09-16 07:56 | PCOTNOTE ---
Attempted OT evaluation, patient reports does not want to work with therapy at this time and is agreeable to discharge from skilled OT services. Will discharge from OT at this time.
--- NOTE | 2021-09-16 08:06 | PCPTNOTE ---
Attempted PT evaluation, patient reports does not want to work with therapy at this time and is agreeable to discharge from skilled PT services. Will discharge PT orders at this time.
[2021-09-16] MEDS: GABAPENTIN 300 MG CAPSULE 600 MG PO ×3 (09:21→17:52)
[2021-09-16] MEDS: HYDROcodone/acetaminophen (*CRX) 10-325 MG TABLET 1 TAB PO ×2 (09:21→14:33)
[2021-09-16] MEDS: BACLOFEN 10 MG TABLET PO ×3 (09:22→17:52)
[2021-09-16] MEDS: ACYCLOVIR 400 MG TABLET PO ×2 (09:22→17:52)
[2021-09-16] MEDS: MELOXICAM 7.5 MG TABLET 15 MG PO (09:22)
[2021-09-16] MEDS: ASPIRIN 81 MG CHEWABLE TABLET PO (09:22)
[2021-09-16] MEDS: polyethylene glycoL 3350 17 GM POWD.PACK PO (09:23)
[2021-09-16] MEDS: POTASSIUM CHLORIDE 20 MEQ PACKET (FOR LIQUID) 40 MEQ PO (09:23)
[2021-09-16] MEDS: modafiniL (*CRX) 200 MG TABLET PO (09:30)
[2021-09-16 12:00] VITALS: BP 124/62
--- NOTE | 2021-09-16 13:31 | PM.DS ---
DS: Admitting Diagnosis Discharge Date 09/16/2021 Admitting Diagnosis UTI (urinary tract infection) DS: Discharge Diagnosis Discharge Diagnosis (1) UTI (urinary tract infection): Qualifiers: Hematuria presence: without hematuria Urinary tract infection type: site unspecified Qualified Code(s): N39.0 - Urinary tract infection, site not specified Code(s): N39.0 - Urinary tract infection, site not specified Status: Acute Assessment and Plan: UC shows likely contamination BC NGTD S/p Zosyn (2) Multiple sclerosis: Code(s): G35 - Multiple sclerosis Status: Chronic Assessment and Plan: Neurology following, recommendations appreciated No treatment at this time Will follow up outpatient (3) Diarrhea: Code(s): R19.7 - Diarrhea, unspecified Status: Acute Assessment and Plan: Resolved Reported diarrhea for least a week w/ liquid stool incontinence (4) Shingles: Code(s): B02.9 - Zoster without complications Status: Chronic Assessment and Plan: Continue with acyclovir (5) Asthma: Code(s): J45.909 - Unspecified asthma, uncomplicated Status: Chronic Assessment and Plan: Continue home inhalers (6) Weakness: Code(s): R53.1 - Weakness Status: Acute Assessment and Plan: Patient has MS Visiting nursing following 3 days, may need HHC at d/c Mother is primary manager wound care (7) Hydronephrosis: Qualifiers: Hydronephrosis type: unspecified Qualified Code(s): N13.30 - Unspecified hydronephrosis Code(s): N13.30 - Unspecified hydronephrosis Status: Acute Assessment and Plan: CT of A/P-->Left nephrolithiasis with obstructing 19 x 8 x 7 mm proximal left ureteral stone with severe left hydroureteronephrosis which may be chronic given the significant renal cortical thinning. Urology consulted, recommendations appreciated, no intervention needed Renal scan cancelled, pt has refused renal scan until speaking with urology again S/p IV antibiotics (8) Leukocytosis (leucocytosis): Qualifiers: Leukocytosis type: unspecified Qualified Code(s): D72.829 - Elevated white blood cell count, unspecified Code(s): D72.829 - Elevated white blood cell count, unspecified Status: Acute Assessment and Plan: Resolved WBC wnl BC NGTD UC likely contaminated (9) Hyponatremia: Code(s): E87.1 - Hypo-osmolality and hyponatremia Status: Acute Assessment and Plan: Improving Likely due to decreased PO intake and volume loss secondary to diarrhea S/p IVF (10) Hypokalemia: Code(s): E87.6 - Hypokalemia Status: Acute Assessment and Plan: Resolved Likely due to increase PO intake and volume loss secondary to diarrhea Was refusing all PO meds S/p IVF DS: Summary Hospital Course Hospital Course: 54-year-old female patient who resides with her mother. She has a PMS significant for MS (wheelchair bound). The patient reported a poor appetite for the last week. She also reported that she had not been taking her medication for at least a month. She had been having diarrhea, the last time she had diarrhea was this morning of admission. The patient stated that she has been incontinent of liquid stool as well as urine. She reported that her buttocks has been broke down and has been getting worse. She stated that the nurses have tried to put a foam dressing on her buttocks but it got ripped off and makes it worse. She reported urinary frequency and urgency. She is incontinent of urine but feels as though her bladder is still full. White count 13.8. Sodium 128 potassium 3.3. Patient was positive for UTI. Abdominal pelvis CT was read as 1. Left nephrolithiasis with obstructing 19 x 8 x 7 mm proximal left ureteral stone with severe left hydroureteronephrosis which may be chronic given the significant renal cortical thinning. 2. Suggestion
[2021-09-16 14:00] VITALS: BP 99/54; PULSE 90; RESP 20; TEMP 37.2; O2SAT 90
== END 2021-09-16 18:50 | disposition home health service (06) ==
LOC: ANHED 09-13 08:18 → ANH3MEDSUR 09-13 11:30
PROVIDERS: Nurse Practitioner; Physician Assistant; Admitting Provider Internal Medicine; Emergency Provider Emergency Medicine; PCP Nurse Practitioner Family; Visit Provider Family Medicine
DX: N39.0 Urinary tract infection, site not specified (principal); N13.2 Hydronephrosis with renal and ureteral calculous obstruction; E87.1 Hypo-osmolality and hyponatremia; B02.9 Zoster without complications; G35 Multiple sclerosis; L89.150 Pressure ulcer of sacral region, unstageable; L89.629 Pressure ulcer of left heel, unspecified stage; D25.9 Leiomyoma of uterus, unspecified; J45.909 Unspecified asthma, uncomplicated; R53.1 Weakness; Z87.891 Personal history of nicotine dependence; Z28.21 Immunization not carried out because of patient refusal
CPT/HCPCS: 36415; 51701; 74177; 80048; 80053; 81001; 83605; 83690; 83735; 84439; 84443; 84480; 85025; 87040; 87086; 87088; 93005; 96361; 96365; 96366; 96368; 96376; 99285; A9270; G0378; G0379; J0696; J1940; J2543; J3480; J7030; Q9967